=== PATIENT | female | born 1950 | race Hispanic/Latino ===

== ENCOUNTER → 2017-12-07 | Outpatient (CLI) | payer MEDICARE ==
[2017-12-07 14:32] LABS: CREATININE 0.7 mg/dL (0.5-1.5)
== END | disposition home or self-care (01) ==
LOC: LAB 13:38
PROVIDERS: ATTEND Internal Medicine Gastroenterology
DX: K70.31 Alcoholic cirrhosis of liver with ascites (principal); R93.3 Abnormal findings on diagnostic imaging of other parts of digestive tract
CPT/HCPCS: 36415; 82565; 84520

== ENCOUNTER → 2017-12-12 | Outpatient (CLI) | payer MEDICARE ==
[~2017-12-12] MED LIST: IOPAMIDOL-370 75 ML VIAL IV ONE
== END | disposition home or self-care (01) ==
LOC: RAH 07:58
PROVIDERS: ATTEND Internal Medicine Gastroenterology
DX: K70.31 Alcoholic cirrhosis of liver with ascites (principal); R16.1 Splenomegaly, not elsewhere classified; R93.3 Abnormal findings on diagnostic imaging of other parts of digestive tract
CPT/HCPCS: 74160; Q9967

== ENCOUNTER 2018-09-11 07:53 | Day surgery (SDC) | payer MEDICARE ==
[2018-09-11] VITALS (7 sets, daily range): BP systolic 81–121; BP diastolic 38–63
[~2018-09-11] VITALS: Ht 157.5 cm; Wt 54.9 kg
[2018-09-11] MEDS ORDERED: LACTULOSE PO (09:02)
[2018-09-11] MEDS ORDERED: WATER PILL PO (09:02)
[2018-09-11] MEDS ORDERED: SODIUM CHLORIDE 0.9% 1000ML 1,000 ML IV ONE (09:10)
== END 2018-09-11 10:55 | disposition home or self-care (01) ==
LOC: DAH 07:53 → ENDO 07:53
PROVIDERS: ATTEND Internal Medicine Gastroenterology
DX: D50.9 Iron deficiency anemia, unspecified (principal); K70.30 Alcoholic cirrhosis of liver without ascites
CPT/HCPCS: 43239; 88305; A4606; J7030

== ENCOUNTER → 2018-12-03 | Outpatient (CLI) | payer MEDICARE ==
[~2018-12-03] MED LIST changes: -IOPAMIDOL-370 75 ML VIAL IV ONE; +LACTULOSE PO; +WATER PILL PO
== END | disposition home or self-care (01) ==
LOC: RAH 14:15
PROVIDERS: ATTEND Family Medicine
DX: Z12.31 Encounter for screening mammogram for malignant neoplasm of breast (principal)
CPT/HCPCS: 77067

== ENCOUNTER 2019-09-09 06:29 | Day surgery (SDC) | payer MEDICARE ==
[~2019-09-09] VITALS: Ht 157.5 cm; Wt 50.3 kg
[~2019-09-09 06:29] MED LIST changes: +SODIUM CHLORIDE 0.9% 1000ML 1,000 ML IV ONE
[2019-09-09 07:34] LABS: BASOPHILS % (AUTO) 0.8 % (0.0-5.0); EOSINOPHILS % (AUTO) 11.3 % (0.0-8.0); HEMATOCRIT 29.5 % (36-48); MEAN CORPUSCULAR HEMOGLOBIN 36.7 pg (27.0-33.0); MEAN CORPUSCULAR HGB CONC 34.6 g/dL (32.0-36.0); MEAN CORPUSCULAR VOLUME 105.9 fL (79-99); MONOCYTES % (AUTO) 15.4 % (3.0-13.0); NEUTROPHILS % (AUTO) 57.5 % (40.0-77.0); NUCLEATED RED BLOOD CELLS 0.1 % (0.0-0.19); PLATELET COUNT (AUTO) 46 K/uL (130-400); RED BLOOD CELL COUNT(AUTO) 2.79 MIL/uL (4.00-5.50); RED CELL DISTRIBUTION WIDTH 15.3 % (11.0-15.5); WHITE BLOOD COUNT (AUTO) 2.5 K/uL (4.8-10.8)
[2019-09-09 07:35] VITALS: BP 122/63
[2019-09-09 07:46] LABS: INR 1.32 (0.85-1.15); PROTHROMBIN TIME 13.7 SEC (9.6-11.6)
[2019-09-09] MEDS ORDERED: WATER PILL (07:47)
[2019-09-09] MEDS ORDERED: PROPOFOL 10 MG/ML 20ML VIAL IV ONE (08:14)
[2019-09-09 08:27] VITALS: BP 88/53
[2019-09-09 08:27] LABS: BASOPHILS % (MANUAL) 2 % (0-2); EOSINOPHILS % (MANUAL) 11 % (1-6); LYMPHOCYTES % (MANUAL) 15 % (22-44); MAN.DIFF COMMENT-IMPRESSION MANUAL DIFFERENTIAL; MONOCYTES % (MANUAL) 14 % (2-9); SEGMENTED NEUTROPHILS % 58 % (40-70)
[2019-09-09 08:33] VITALS: BP 95/49
[2019-09-09 08:35] VITALS: BP 100/57
== END 2019-09-09 09:00 | disposition home or self-care (01) ==
LOC: DAH 06:29 → ENDO 06:29
PROVIDERS: ATTEND Internal Medicine
DX: K70.31 Alcoholic cirrhosis of liver with ascites (principal); K29.50 Unspecified chronic gastritis without bleeding; I85.10 Secondary esophageal varices without bleeding; K31.89 Other diseases of stomach and duodenum; D64.9 Anemia, unspecified; F17.200 Nicotine dependence, unspecified, uncomplicated; Z86.010 Personal history of colon polyps; Z90.49 Acquired absence of other specified parts of digestive tract; Z98.890 Other specified postprocedural states; Z79.899 Other long term (current) drug therapy
CPT/HCPCS: 36415; 43239; 85025; 85610; A4215; A4221; A4222; A4223; A4606; A4615; A4663; J2704; J7030

== ENCOUNTER 2019-11-07 05:36 | Day surgery (SDC) | payer MEDICARE ==
[~2019-11-07] VITALS: Ht 157.5 cm; Wt 54.9 kg
[~2019-11-07 05:36] MED LIST changes: -SODIUM CHLORIDE 0.9% 1000ML 1,000 ML IV ONE; +WATER PILL
[2019-11-07] MEDS ORDERED: LIDOCAINE HCL 1% 20 ML VIAL ONE (06:08)
[2019-11-07] MEDS ORDERED: PROPOFOL 10 MG/ML 20ML VIAL IV ONE (06:08)
[2019-11-07] MEDS ORDERED: GLYCOPYRROLATE 0.2 MG/ML 5 ML VIAL ONE (06:09)
[2019-11-07] MEDS ORDERED: SODIUM CHLORIDE 0.9% 1000ML 1,000 ML IV ONE (06:25)
[2019-11-07 06:29] VITALS: BP 148/68
[2019-11-07] MEDS ORDERED: SIMETHICONE 40 MG/0.6 ML ML ONE (07:02)
[2019-11-07 07:21] VITALS: BP 105/53
[2019-11-07 07:26] VITALS: BP 114/60
[2019-11-07 07:31] VITALS: BP 125/66
== END 2019-11-07 07:55 | disposition home or self-care (01) ==
LOC: ENDO 05:36 → DAH 05:36 → ENDO 07:55
PROVIDERS: ATTEND Internal Medicine Gastroenterology
DX: R14.0 Abdominal distension (gaseous) (principal); K57.30 Diverticulosis of large intestine without perforation or abscess without bleeding; F17.210 Nicotine dependence, cigarettes, uncomplicated; K70.31 Alcoholic cirrhosis of liver with ascites; Z86.010 Personal history of colon polyps; Z98.890 Other specified postprocedural states; Z79.899 Other long term (current) drug therapy; Z72.89 Other problems related to lifestyle; Z82.49 Family history of ischemic heart disease and other diseases of the circulatory system; Z83.3 Family history of diabetes mellitus
CPT/HCPCS: 45378; A4215; A4221; A4222; A4223; A4606; A4615; A4663; J2704; J3490; J7030